=== PATIENT | female | born 1960 | race Caucasian/White ===

== ENCOUNTER 2017-01-30 12:04 | Observation (INO) | payer OTHER ==
[~2017-01-30] VITALS: Ht 172.7 cm; Wt 63.2 kg
[~2017-01-30 12:04] MED LIST: ACET-1256 PO; ASPI81TA28 PO; HYDR-5688 PO; METO-157 PO; SUCR5SUS PO
[2017-01-30] MEDS ORDERED: ASPIRIN 324 MG CHEW PO STA (12:20)
[2017-01-30] MEDS ORDERED: NITROGLYCERIN OINT 2% 1GM PACKET EXT ONE ×2 (12:30)
[2017-01-30 12:34] LABS: BASO % 0.4 %; BASO ABS # 0.05 K/uL (0-0.2); COMPLETE YES; EOS % 0.7 %; HEMATOCRIT 43.6 % (37-47); IG% 0.2 %; LYMPH ABS # 4.64 K/uL (1.2-3.4); MEAN CORPUSCULAR HEMOGLOBIN 30.7 pg (25-34); MEAN CORPUSCULAR HGB CONC 33.7 g/dl (32-36); MEAN PLATELET VOLUME 9.4 fL (7.4-10.4); MONO % 6.2 %; NEUT % 57.5 %; PLATELET COUNT 291 K/uL (130-400); RED BLOOD COUNT 4.79 M/uL (4.2-5.4); WHITE BLOOD COUNT 13.24 K/uL (4.8-10.8)
[2017-01-30 12:43] LABS: BLOOD UREA NITROGEN 10 mg/dl (7-18); BUN/CREATININE RATIO 11.7 (10-20); CALCIUM 9.2 mg/dl (8.5-10.1); CARBON DIOXIDE 25 mmol/L (21-32); CHLORIDE 104 mmol/L (98-107); CREATININE 0.86 mg/dl (0.60-1.20); GLUCOSE 97 mg/dl (70-99); POTASSIUM 3.7 mmol/L (3.5-5.1); SODIUM 139 mmol/L (136-145)
[2017-01-30 12:50] LABS: INR 0.9 (0.9-1.1)
--- NOTE | 2017-01-30 13:10 | DIAGNOSTIC IMAGING REPORT ---
CHEST ONE VIEW PORTABLE CLINICAL HISTORY: Atypical chest pain COMPARISON STUDY: 01/22/2016 FINDINGS: There is biapical scarring with mild superior hilar retraction. There is moderate elevation right hemidiaphragm. There is no focal pulmonary consolidation. There are no pleural effusions. There is no failure.[ Underlying emphysema is suspected. IMPRESSION: No active disease in the chest. Electronically signed by: Malcolm Guerrier M.D. 01/30/2017 1:08 PM Dictated Date/Time: 01/30/2017 1:07 PM
[2017-01-30] MEDS ORDERED: ONDANSETRON INJ 2 MG/ML 2 ML VIAL IV PRN (14:30)
[2017-01-30] MEDS ORDERED: ACETAMINOPHEN 325 MG TAB PO PRN (14:30)
[2017-01-30] MEDS ORDERED: NITROGLYCERIN 0.4 MG SL PER TAB CHARGE SL PRN (14:30)
[2017-01-30] MEDS ORDERED: IV FLUIDS COMPLETED PRN (15:45)
[2017-01-30 16:20] VITALS: BP 116/64; PULSE 58; TEMP 36.6; O2SAT 100; Ht 172.7 cm; Wt 63.2 kg
--- NOTE | 2017-01-30 17:10 | History and Physical ---
History & Physical Date & Time of Service: Jan 30, 2017 at 14:46 Chief Complaint: Chest Pain Primary Care Physician: Kem Rodriguez M.D. History of Present Illness Source: patient, family, clinic records, hospital records 57 year old female with PMH of paroxysmal atrial tachycardia, esophagitis, Dyslipidemia presents to the Emergency Room with complaints substernal chest pain that started while she was at work. 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 Pain was sharp and radiated through her left shoulder and jaw, grade 10/10 and associated with SOB. she said that the pain improved with the nitro patch. Denies any diaphoresis and dizziness. She said that she had an history of SVT and family hx of cardiac disease. her dad had an heart attack at age 39. Last stress test was wo years ago and was normal. Denies lightheadedness, fevers, cough, leg swelling or pain, vomiting, diarrhea, or other complaints. Past Medical/Surgical History Medical Problems: (1) Appendectomy Status: Resolved (2) Bilateral breast implants Status: Resolved (3) Biopsy of breast Status: Resolved (4) Cholecystectomy Status: Resolved (5) Dyslipidemia Status: Chronic (6) Endometriosis Status: Chronic (7) Exploratory laparotomy Status: Resolved (8) Hernia repair Status: Resolved (9) History of - hysterectomy Status: Resolved (10) Oophorectomy Status: Resolved (11) Small bowel obstruction Status: Chronic (12) SVT Status: Chronic Family History FHx: COPD (chronic obstructive pulmonary disease) FHx: heart disease Social History Smoking Status: Current Every Day Smoker Drug Use: none Marital Status: Occupational Status: employed Immunizations History of Influenza Vaccine: N/A History of Tetanus Vaccine?: Yes Tetanus Immunization Date: Jun 19, 2005 History of Pneumococcal: Yes History of Hepatitis B Vaccine: Yes Hepatitis Immunization Date: Oct 19, 1994 Multi-Drug Resistant Organisms History of MDRO: No Allergies Coded Allergies: Fentanyl (Verified Allergy, Severe, RESP. DISTRESS, 01/30/17) Ibuprofen (Verified Allergy, Severe, ESOPHOGIAL SPASMS, 01/30/17) Penicillins (Verified Allergy, Severe, SOB, HIVES, ANAPHYLAXIS-CAN TAKE CEPHALOSPORINS [place], 01/30/17) Pseudoephedrine (Verified Allergy, Mild, 01/30/17) Ezetimibe (Verified Allergy, Unknown, muscle pain, 01/30/17) Simvastatin (Verified Adverse Reaction, Intermediate, MUSCLE SPASMS,CRAMPS , 01/30/17) Statins (Verified Adverse Reaction, Intermediate, muscle cramps and spasms , 01/30/17) Prochlorperazine (Verified Adverse Reaction, Unknown, PSYCHOTIC RXN, ) Home Medications Scheduled PRN Acetaminophen (Tylenol), 1,000 MG PO DIRECTED PRN for Pain Aspirin (Aspirin Ec), 81 MG PO DAILY PRN for Pain Metoclopramide (Reglan), 5 MG PO UD PRN for GI Upset Sucralfate (Carafate), 1 GM PO DIRECTED PRN for STOMACH ISSUES Physical Exam Vital Signs Date Time Temp Pulse Resp B/P Pulse Ox O2 Delivery O2 Flow Rate FiO2 01/30/17 14:30 129/85 01/30/17 14:14 57 18 109/73 97 01/30/17 13:30 61 18 108/73 97 01/30/17 13:10 65 01/30/17 12:45 125/73 01/30/17 12:27 77 18 121/76 99 Room Air 01/30/17 12:23 98 Room Air 01/30/17 12:07 36.7 86 18 144/88 100 Room Air General Appearance: WD/WN, no apparent distress Head: normocephalic, atraumatic Eyes: normal inspection, PERRL, EOMI ENT: normal ENT inspection, hearing grossly normal, TMs normal Neck: supple, no JVD Respiratory/Chest: chest non-tender, lungs clear, normal breath sounds, no respiratory distress, no accessory muscle use Cardiovascular: regular rate, rhythm, no edema, no gallop, no JVD, no murmur Abdomen/GI: normal bowel sounds, non tender, soft Back: normal inspection, no CVA tenderness, no muscle spasm Extremities/Musculoskelatal: normal inspection, no calf tenderness Neurologic/Psych: [employer] senior [employer] II-XII nml as tested, no motor/sensory deficits, alert, oriented x 3 Skin: normal color, warm/dry Lymphatic: no adenopathy Diagnostics Laboratory Results Results Past 24 Hours Test 01/30/17 12:10 Range/Units White Blood Count 13.24 4.8-10.8 K/uL Red Blood Count 4.79 4.2-5.4 M/uL Hemoglobin 14.7 12.0-16.0 g/dL Hematocrit 43.6 37-47 % Mean Corpuscular Volume 91.0 80-100 fL Mean Corpuscular Hemoglobin 30.7 25-34 pg Mean Corpuscular Hemoglobin Concent 33.7 32-36 g/dl Platelet Count 291 130-400 K/uL Mean Platelet Volume 9.4 7.4-10.4 fL Neutrophils (%) (Auto) 57.5 % Lymphocytes (%) (Auto) 35.0 % Monocytes (%) (Auto) 6.2 % Eosinophils (%) (Auto) 0.7 % Basophils (%) (Auto) 0.4 % Neutrophils # (Auto) 7.62 1.4-6.5 K/uL Lymphocytes # (Auto) 4.64 1.2-3.4 K/uL Monocytes # (Auto) 0.82 0.11-0.59 K/uL Eosinophils # (Auto) 0.09 0-0.5 K/uL Basophils # (Auto) 0.05 0-0.2 K/uL RDW Standard Deviation 46.8 36.4-46.3 fL RDW Coefficient of Variation 14.0 11.5-14.5 % Immature Granulocyte % (Auto) 0.2 % Immature Granulocyte # (Auto) 0.02 0.00-0.02 K/uL Prothrombin Time 10.0 9.0-12.0 SECONDS Prothromb Time International Ratio 0.9 0.9-1.1 Activated Partial Thromboplast Time 25.9 21.0-31.0 SECONDS Partial Thromboplastin Ratio 1.0 Sodium Level 139 136-145 mmol/L Potassium Level 3.7 3.5-5.1 mmol/L Chloride Level 104 98-107 mmol/L Carbon Dioxide Level 25 21-32 mmol/L Anion Gap 10.0 3-11 mmol/L Blood Urea Nitrogen 10 7-18 mg/dl Creatinine 0.86 0.60-1.20 mg/dl Est Creatinine Clear Calc Drug Dose 73.6 ml/min Estimated GFR () 88.1 Estimated GFR (Non- 76.1 BUN/Creatinine Ratio 11.7 10-20 Random Glucose 97 70-99 mg/dl Calcium Level 9.2 8.5-10.1 mg/dl Troponin I < 0.015 0-0.045 ng/ml Diagnostic Radiology CHEST ONE VIEW PORTABLE CLINICAL HISTORY: Atypical chest pain COMPARISON STUDY: 01/22/2016 FINDINGS: There is biapical scarring with mild superior hilar retraction. There is moderate elevation right hemidiaphragm. There is no focal pulmonary consolidation. There are no pleural effusions. There is no failure.[ Underlying emphysema is suspected. IMPRESSION: No active disease in the chest. Electronically signed by: Malcolm Guerrier M.D. 01/30/2017 1:08 PM Dictated Date/Time: 01/30/2017 1:07 PM Impression Assessment and Plan Chest Pain Pt has significant risk factors such as smoking, dyslipidemia and family hx heart disease Need to R/O ACS 1set CM negative EKG did not show any significant ST changes will follow on 2 more set of CM repeat EKG in am her last stress test was 2 yrs ago an was negative echo done on 11/25/12 was negative will get a resting echo consult cardiology Not on statin (cannot tolerates it) and Beta cullen check lipid panel continue aspirin if chest pain continue, might consider to get a cardiac cath since pt never had one will continue monitor closely in telemetry Tobacco abuse Counseling on smoking cessation no nicotine patch because in the past it triggered her SVT DVT px On subq heparin Code Status Full code Level of Care Telemetry Resuscitation Status FULL RESUSCITATION VTE Prophylaxis VTE Risk Assessment Done? Y/N: Yes Risk Level: Moderate Given or contraindicated: Unfractionated heparin SQ Additional Copies To Kem Rodriguez M.D.
--- NOTE | 2017-01-30 17:29 | EMERGENCY ROOM VISIT NOTE ---
History Report prepared by Adibayah: Malorie Dudley Under the Supervision of: Dr. Yuan Alexandra M.D. First contact with patient: 12:12 Chief Complaint: CHEST PAIN Stated Complaint: CHEST PAIN Nursing Triage Summary: pt to the ED with c/o substernal chest pain that started 10 min ago with SOB and pain goes to her neck and between shoulder blades. hx svt no cough or cold History of Present Illness The patient is a 57 year old female who presents to the Emergency Room with complaints of improved substernal chest pain that began 10 minutes ago. The pain was tight and radiated through her left shoulder and jaw. It began while she was putting gloves on at work. She also developed shortness of breath and queasiness at that time. Her pain was a 10/10 for about 5 minutes and has since improved to a 2/10. She denies sweating. The patient has a history of SVT but denies any other cardiac disease. Her most recent stress test was normal two years ago. She has never had a cardiac catheterization. She follows with Dr. Jin of [facility]. The patient notes that her father had his first heart attack at age 39. He was a smoker. Her maternal grandfather also had a history of heart disease. The patient smokes about 5 cigarettes a day. She has a 30 year history of smoking. She reports that she has been in cardiac arrest twice when she perforated her bowels. Denies any recent GI issues. She did not take aspirin since her pain began. Denies lightheadedness, fevers, cough , leg swelling or pain, vomiting, diarrhea, or other complaints. Source of History: patient Onset: 10 minutes ago Position: chest (substernal) Symptom Intensity: initial: 10/10, current: 2/10 Quality: other (tightness) Timing: other (improved) Associated Symptoms: + SOB, No cough, No diarrhea, No fevers, No vomiting Note: Other symptoms: queasiness Review of Systems See HPI for pertinent positives & negatives. A total of 10 systems reviewed and were otherwise negative. Past Medical & Surgical Medical Problems: (1) Appendectomy (2) Bilateral breast implants (3) Biopsy of breast (4) Chest pain (5) Cholecystectomy (6) Dyslipidemia (7) Endometriosis (8) Exploratory laparotomy (9) Hernia repair (10) History of - hysterectomy (11) lap (12) Oophorectomy (13) Small bowel obstruction (14) SVT Family History FHx: COPD (chronic obstructive pulmonary disease) FHx: heart disease Social History Smoking Status: Current Every Day Smoker Alcohol Use: none Drug Use: none Marital Status: Housing Status: lives with significant other Occupation Status: employed Current/Historical Medications Scheduled PRN Acetaminophen (Tylenol), 1,000 MG PO DIRECTED PRN for Pain Aspirin (Aspirin Ec), 81 MG PO DAILY PRN for Pain Metoclopramide (Reglan), 5 MG PO UD PRN for GI Upset Sucralfate (Carafate), 1 GM PO DIRECTED PRN for STOMACH ISSUES Allergies Coded Allergies: Fentanyl (Verified Allergy, Severe, RESP. DISTRESS, 01/30/17) Ibuprofen (Verified Allergy, Severe, ESOPHOGIAL SPASMS, 01/30/17) Penicillins (Verified Allergy, Severe, SOB, HIVES, ANAPHYLAXIS-CAN TAKE CEPHALOSPORINS OK, 01/30/17) Pseudoephedrine (Verified Allergy, Mild, 01/30/17) Ezetimibe (Verified Allergy, Unknown, muscle pain, 01/30/17) Simvastatin (Verified Adverse Reaction, Intermediate, MUSCLE SPASMS,CRAMPS , 01/30/17) Statins (Verified Adverse Reaction, Intermediate, muscle cramps and spasms , 01/30/17) Prochlorperazine (Verified Adverse Reaction, Unknown, PSYCHOTIC RXN, ) Physical Exam Vital Signs Date Time Temp Pulse Resp B/P Pulse Ox O2 Delivery O2 Flow Rate FiO2 01/30/17 14:30 129/85 01/30/17 14:14 57 18 109/73 97 01/30/17 13:30 61 18 108/73 97 01/30/17 13:10 65 01/30/17 12:45 125/73 01/30/17 12:27 77 18 121/76 99 Room Air 01/30/17 12:23 98 Room Air 01/30/17 12:07 36.7 86 18 144/88 100 Room Air Physical Exam Constitutional: Vital signs reviewed. Eyes: Pupils are equal round reactive to light. Conjunctiva are noninjected. ENT: Pharynx is clear without erythema or exudate. Mucous membranes are moist. Neck supple without meningeal signs. Respiratory: Clear to auscultation bilaterally. Breath sounds are equal bilaterally. Cardiovascular: Regular rate and rhythm. No rubs or gallops. GI: Soft, nondistended and nontender. Bowel sounds are present. Musculoskeletal: No peripheral edema. No lower extremity tenderness. Integumentary: No cyanosis. Neurological: The patient is awake and alert. No focal deficits. Psychiatric: Normal affect. Medical Decision & Procedures ER Provider Diagnostic Interpretation: Radiology results as stated below per my review and the radiologist's interpretation: CHEST ONE VIEW PORTABLE CLINICAL HISTORY: Atypical chest pain COMPARISON STUDY: 01/22/2016 FINDINGS: There is biapical scarring with mild superior hilar retraction. There is moderate elevation right hemidiaphragm. There is no focal pulmonary consolidation. There are no pleural effusions. There is no failure.[ Underlying emphysema is suspected. IMPRESSION: No active disease in the chest. Electronically signed by: Malcolm Guerrier M.D. 01/30/2017 1:08 PM Dictated Date/Time: 01/30/2017 1:07 PM Laboratory Results 01/30/17 12:10 Red Blood Count 4.79, Mean Corpuscular Volume 91.0, Mean Corpuscular Hemoglobin 30.7, Mean Corpuscular Hemoglobin Concent 33.7, Mean Platelet Volume 9.4, Neutrophils (%) (Auto) 57.5, Lymphocytes (%) (Auto) 35.0, Monocytes (%) (Auto) 6.2, Eosinophils (%) (Auto) 0.7, Basophils (%) (Auto) 0.4, Neutrophils # (Auto) 7.62, Lymphocytes # (Auto) 4.64, Monocytes # (Auto) 0.82, Eosinophils # (Auto) 0.09, Basophils # (Auto) 0.05 01/30/17 12:10 Test 01/30/17 12:10 White Blood Count 13.24 K/uL (4.8-10.8) Red Blood Count 4.79 M/uL (4.2-5.4) Hemoglobin 14.7 g/dL (12.0-16.0) Hematocrit 43.6 % (37-47) Mean Corpuscular Volume 91.0 fL (80-100) Mean Corpuscular Hemoglobin 30.7 pg (25-34) Mean Corpuscular Hemoglobin Concent 33.7 g/dl (32-36) Platelet Count 291 K/uL (130-400) Mean Platelet Volume 9.4 fL (7.4-10.4) Neutrophils (%) (Auto) 57.5 % Lymphocytes (%) (Auto) 35.0 % Monocytes (%) (Auto) 6.2 % Eosinophils (%) (Auto) 0.7 % Basophils (%) (Auto) 0.4 % Neutrophils # (Auto) 7.62 K/uL (1.4-6.5) Lymphocytes # (Auto) 4.64 K/uL (1.2-3.4) Monocytes # (Auto) 0.82 K/uL (0.11-0.59) Eosinophils # (Auto) 0.09 K/uL (0-0.5) Basophils # (Auto) 0.05 K/uL (0-0.2) RDW Standard Deviation 46.8 fL (36.4-46.3) RDW Coefficient of Variation 14.0 % (11.5-14.5) Immature Granulocyte % (Auto) 0.2 % Immature Granulocyte # (Auto) 0.02 K/uL (0.00-0.02) Prothrombin Time 10.0 SECONDS (9.0-12.0) Prothromb Time International Ratio 0.9 (0.9-1.1) Activated Partial Thromboplast Time 25.9 SECONDS (21.0-31.0) Partial Thromboplastin Ratio 1.0 Anion Gap 10.0 mmol/L (3-11) Est Creatinine Clear Calc Drug Dose 73.6 ml/min Estimated GFR () 88.1 Estimated GFR (Non- 76.1 BUN/Creatinine Ratio 11.7 (10-20) Calcium Level 9.2 mg/dl (8.5-10.1) Troponin I < 0.015 ng/ml (0-0.045) Laboratory results as reviewed by me. Medications Administered Medications (Trade) Dose Ordered Sig/Oneyda Route Start Time Stop Time Status Last Admin Dose Admin Aspirin (Aspirin Chew) 324 mg NOW STAT PO 01/30/17 12:20 01/30/17 12:22 DC 01/30/17 12:28 324 MG Nitroglycerin (Nitroglycerin 2% Oint) 0.5 inch NOW ONCE EXT 01/30/17 12:30 01/30/17 12:31 DC 01/30/17 12:30 0.5 INCH ECG Indication: chest pain Rate (beats per minute): 86 Rhythm: normal sinus Findings: no ectopy, other (slight downsloping ST segment V3-V5) Comparison ECG Date: 01/22/16 Change: no significant change ED Course 1216: The patient was evaluated in room C4. A complete history and physical exam was performed. 1220: Ordered Aspirin 324 mg PO. 1230: Ordered Nitroglycerin 0.5 inch EXT, Nitroglycerin 1 inch EXT. 1314: I reassessed the patient and updated her on results so far. Her chest pain has resolved. 1316: I discussed the case with [facility]. The patient will be evaluated for further management. Medical Decision This is a 57 year-old female presents with chest pain. Differential diagnosis includes unstable angina, OR, pleurisy, GERD, anxiety. I did perform a limited focused review of portions of the patient's old chart on the electronic medical record. The patient has had no recent pertinent visits to this hospital. I did evaluate the patient as noted above. The patient is presenting with what she describes as initially crushing chest pain which is now a tightness radiating into her jaw and shoulder blade. She does have several cardiac risk factors including a strong family history and tobacco use. IV access was established. The patient was placed on a continuous air sampling and monitoring. I did treat her with nitroglycerin paste. I did order and personally review the patient's 12-lead EKG and chest x-ray as described above. I did order and review the patient's blood work as noted in the electronic medical record. Initial troponin is negative. I did reassess the patient. Her chest pain is completely resolved at this time. I did discuss the test results with her and recommended hospitalization for further care as well as repeat cardiac enzymes. I did discuss the case with the hospitalist and showcase trimmer. Consults Time Called: 1314 Consulting Physician: [facility] Returned Call: [phone] I discussed the case with her. The patient will be evaluated for further management. Impression Primary Impression: Precordial chest pain Scribe Attestation The scribe's documentation has been prepared under my direct and personally reviewed by me in its entirety. I confirm that the note above accurately reflects all work, treatment, procedures, and medical decision making performed by me. Departure Information Dispostion Being Evaluated By Hospitalist Referrals Kem Rodriguez M.D. (PCP) Patient Instructions My [facility]
--- NOTE | 2017-01-30 18:19 | CARDIOLOGY CONSULTATION ---
DATE OF CONSULTATION: 01/30/2017 REFERRING PHYSICIAN: [facility]. REASON FOR CONSULTATION: Chest pain. 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 Today, she was at work and in her usual state of health. She had a sudden onset of epigastric retrosternal chest discomfort radiating to her back and up into her jaw. It lasted for several minutes and then started to improve. She was taken to the Emergency Department, where nitro paste was placed on her chest and her symptoms completely resolved. She is completely pain free. She has a history of paroxysmal atrial arrhythmias, but was last seen by our group almost 10 years ago. She has not had any recent episodes of heart palpitations or tachycardia. She has a history of cigarette smoking and currently remains smoker. She also has a history of dyslipidemia and esophagitis. ALLERGIES: FENTANYL, IBUPROFEN, PENICILLIN, PSEUDOEPHEDRINE, ____ AND PROCHLORPERAZINE. PAST MEDICAL HISTORY: As outlined above, she has a history of paroxysmal atrial arrhythmias. She has been treated for esophagitis and has a history of dyslipidemia. She has no prior history of diabetes, strokes or kidney disease. FAMILY MEDICAL HISTORY: Noncontributory. SOCIAL HISTORY: The patient continues to smoke. She is and employs as a nurse. REVIEW OF SYSTEMS: A 10-point review of systems is negative except for the history of chief complaint. PHYSICAL EXAMINATION: GENERAL: She is alert and oriented in no acute distress. VITAL SIGNS: Blood pressure is 120/80 and pulse is regular at 60. She is afebrile. HEENT: She is normocephalic. Pupils are equal and reactive to light. Extraocular muscles are intact bilaterally. NECK: The neck veins are flat. Carotids have good upstrokes bilaterally without bruits. Thyroid is nonpalpable. RESPIRATORY: Breath sounds equal bilaterally and clear to auscultation. CARDIOVASCULAR: Heart has a regular rhythm. Normal S1 and S2. No S3 or S4. No cardiac rubs or murmurs. GASTROINTESTINAL: Abdomen is soft and nontender without organomegaly. EXTREMITIES: Free of edema, digit clubbing, or cyanosis. NEUROLOGIC: Grossly intact. SKIN: Warm to touch. LYMPH NODES: Negative to palpation. LABORATORY DATA: EKG reveals sinus rhythm without acute changes. Cardiac markers are negative so far. IMPRESSION: 1. Atypical chest pain. 2. History of paroxysmal atrial arrhythmias. 3. History of cigarette smoking. RECOMMENDATIONS: If the patient's cardiac markers are negative, then I believe we should proceed with an exercise stress echocardiogram. We will follow along with you during her hospital stay.
[2017-01-30 19:30] VITALS: BP 119/62; PULSE 76; TEMP 36.8; O2SAT 98
[2017-01-30] MEDS: HEPARIN SOD 5000 UNIT/0.5 ML CARP SQ SCH (22:17)
[2017-01-31] VITALS (8 sets, daily range): BP systolic 96–121; BP diastolic 58–76; PULSE 56–76; TEMP 36.6–37.2; O2SAT 20–99
[2017-01-31] MEDS: HEPARIN SOD 5000 UNIT/0.5 ML CARP SQ SCH ×2 (06:07→14:00)
[2017-01-31 06:22] LABS: HEMATOCRIT 40.3 % (37-47); MEAN CELL VOLUME 93.1 fL (80-100); MEAN CORPUSCULAR HEMOGLOBIN 30.9 pg (25-34); MEAN CORPUSCULAR HGB CONC 33.3 g/dl (32-36); MEAN PLATELET VOLUME 9.6 fL (7.4-10.4); PLATELET COUNT 251 K/uL (130-400); RED BLOOD COUNT 4.33 M/uL (4.2-5.4); WHITE BLOOD COUNT 9.14 K/uL (4.8-10.8)
[2017-01-31 06:56] LABS: BUN/CREATININE RATIO 20.8 (10-20); CALCIUM 8.2 mg/dl (8.5-10.1); CHOLESTEROL/HDL RATIO 3.5; CREATININE 0.78 mg/dl (0.60-1.20); POTASSIUM 4.3 mmol/L (3.5-5.1)
[2017-01-31] MEDS ORDERED: ASPIRIN 81 MG ECTAB PO SCH (09:00)
[2017-01-31] MEDS ORDERED: PERFLUTREN LIPID MICROSPHERE (DEFINITY) IV ONE (11:45)
--- NOTE | 2017-01-31 11:47 | Cardiology Progress Note ---
Cardiology Progress Note Date of Service Jan 31, 2017. Cardiology Progress Note Patient with abnormal exercise stress echo. Chest pressure reproduced with exertion. Normal EKG. Subtle septal wall motion abnormality. Advance diet. NPO after MN except medications for cardiac cath 02/01.
--- NOTE | 2017-01-31 12:31 | EXERCISE STRESS ECHO ---
*NOTICE TO RECEIVING LIBERTARIAN AGENCY This information is strictly Confidential and protected under [place] law. [place] law prohibits you from making any further disclosure of this information unless further disclosure is expressly permitted by the written consent of the person to whom it pertains or is authorized by law. A general authorization for the release of medical or other information is not sufficient for this purpose. Hospital accepts no responsibility if the information is made available to any other person, INCLUDING THE PATIENT. Interpretation Summary * Name: RISA JEAN Study Date: 01/31/2017 09:46 AM * Patient Location: .2E\\S\\E212\\S\\1 * : 1960 (M/d/yyyy) Gender: Female Height: 68 in * Age: 57 yrs Ethnicity: CA Weight: 139 lb * Ordering Physician: Kp Miller * Performed By: Angelica Crabtree RDCS * * Reason For Study: Chest pain * BSA: 1.8 m2 * -- Conclusions -- * STRESS STUDY: * The exercise stress was abnormal with complaint of "chest pressure" induced in Stage II of exercise that continued in to stage III. * Mild equivocal ST depression was noted in the inferior leads in stage I , that resolved with progressive exercise. The ECG response was otherwise negative for ischemia. * The heart rate response was attenuated despite a moderately high level of exercise. * The resting wall motion was normal. * The post stress images were technically limited due to ventricular ectopy in the immediate post exercise recovery interval. * The heart rate response was suboptimal despite achieving a moderately high exercise load, and recovered quickly limiting the post exercise images for detecting the ischemic window. * As subtle septal wall motion abnormality was noted on the post exercise images in the parasternal short axis view. * The left ventricular systolic function increased appropriately with exercise. * RESTING STUDY: * There is a small circumferential pericardial effusion. * There are no echocardiographic indications of cardiac tamponade. * There is no significant valvular heart disease. Procedure Details * ECHOEX, CPT #34183 * ECHO DOPPLER, CPT #[id number] * ECHO COLOR FLOW, CPT #[id number] * A contrast injection of Definity was performed to improve assessment of LV function. * Contrast was injected into an intravenous site in the left arm. * One vial of Definity ultrasound contrast was diluted in normal saline to a total volume of 10 ml. A total of '4' ml of solution was administered during imaging. * Lot # [id number] of Definity utilized for procedure. * Expiration date FEB 27. * The attending nurse who injected the contrast agent was Nkechi Crawford RN. Left Ventricle * The left ventricle is normal in size. * There is normal left ventricular wall thickness. * Left ventricular systolic function is normal. * Ejection Fraction = 60-65%. * The resting wall motion was normal. The post stress images were technically limited due to ventricular ectopy in the immediate post exercise recovery interval. The heart rate response was suboptimal despite achieving a moderately high exercise load, and recovered quickly limiting the post exercise images for detecting the ischemic window. As subtle septal wall motion abnormality was noted on the post exercise images in the parasternal short axis view. The left ventricular systolic function increased appropriately with exercise. Right Ventricle * The right ventricle is normal in size and function. Atria * The left atrial size is normal. * Right atrial size is normal. * No ASD detected; PFO is not assessed. Mitral Valve * The mitral valve is normal. * There is no mitral valve stenosis. * Significant mitral regurgitation is absent. Tricuspid Valve * The tricuspid valve is normal. * There is no tricuspid stenosis. * Significant tricuspid regurgitation is absent. * Doppler findings do not suggest pulmonary hypertension. Aortic Valve * The aortic valve is trileaflet. * No hemodynamically significant valvular aortic stenosis. * No aortic regurgitation is present. Pulmonic Valve * The pulmonic valve is not well visualized. Great Vessels * The aortic root is normal size. Pericardium * There is a small circumferential pericardial effusion. * There are no echocardiographic indications of cardiac tamponade. Stress Parameters * The baseline ECG reveals sinus bradycardia with normal ST segments. * Mild equivocal ST depression was noted in the inferior leads in stage I , that resolved with progressive exercise. The ECG response was otherwise negative for ischemia. Occasional PVCs were noted in recovery. The heart rate response was attenuated despite a moderately high level of exercise. * The stress portion of this study was personally supervised by the undersigned interpreting physician. * Rest heart rate was '59' BPM. * Rest blood pressure was '99/64' * Maximum heart rate achieved was 133 bpm. * Maximum heart rate was 80 % of maximum age-predicted heart rate. * Maximum blood pressure was '187/66' * Total exercise time was '9:00' * Maximum exercise MET level achieved was '10.10' METS * Maximum treadmill speed was '3.40' miles per hour. * Maximum treadmill elevation was '14.00'% grade. * Exercise was terminated due to 'patient request' Left Ventricular Diastolic Function * Grade I diastolic dysfunction, (abnormal relaxation pattern). MMode 2D Measurements and Calculations IVSd 0.73 cm LVIDd 3.9 cm LVIDs 2.7 cm LVPWd 0.84 cm IVS/LVPW 0.86 FS 30.6 % EDV(Teich) 66.6 ml ESV(Teich) 27.5 ml EF(Teich) 58.7 % EDV(cubed) 60.1 ml ESV(cubed) 20.1 ml EF(cubed) 66.6 % LV mass(C)d 87.7 grams LV mass(C)dI 50.1 grams/m\\S\\2 SV(Teich) 39.1 ml SI(Teich) 22.3 ml/m\\S\\2 SV(cubed) 40.0 ml SI(cubed) 22.9 ml/m\\S\\2 ACS 1.9 cm LA dimension 2.5 cm asc Aorta Diam 2.7 cm LVAd ap4 25.6 cm\\S\\2 LVLd ap4 7.3 cm EDV(MOD-sp4) 73.6 ml EDV(sp4-el) 76.5 ml LVAs ap4 13.6 cm\\S\\2 LVLs ap4 5.7 cm ESV(MOD-sp4) 27.0 ml ESV(sp4-el) 27.4 ml EF(MOD-sp4) 63.3 % EF(sp4-el) 64.2 % LVAd ap2 21.2 cm\\S\\2 LVLd ap2 7.1 cm EDV(MOD-sp2) 53.6 ml EDV(sp2-el) 54.2 ml LVAs ap2 10.1 cm\\S\\2 LVLs ap2 4.6 cm ESV(MOD-sp2) 19.2 ml ESV(sp2-el) 18.6 ml EF(MOD-sp2) 64.2 % EF(sp2-el) 65.7 % LVLd %diff -3.10 % EDV(MOD-bp) 63.6 ml LVLs %diff -22.61 % ESV(MOD-bp) 24.7 ml EF(MOD-bp) 61.1 % SV(MOD-sp4) 46.5 ml SI(MOD-sp4) 26.6 ml/m\\S\\2 SV(MOD-sp2) 34.4 ml SI(MOD-sp2) 19.7 ml/m\\S\\2 SV(MOD-bp) 38.9 ml SI(MOD-bp) 22.2 ml/m\\S\\2 SV(sp4-el) 49.1 ml SI(sp4-el) 28.0 ml/m\\S\\2 SV(sp2-el) 35.7 ml SI(sp2-el) 20.4 ml/m\\S\\2 Doppler Measurements and Calculations MV E max fabio 80.9 cm/sec MV A max fabio 47.4 cm/sec MV E/A 1.7 MV dec time 0.25 sec Ao V2 max 129.6 cm/sec Ao max PG 6.7 mmHg Ao max PG (full) 2.6 mmHg LV V1 max PG 4.1 mmHg LV V1 max 101.2 cm/sec PA V2 max 76.4 cm/sec PA max PG 2.3 mmHg PA acc slope 381.3 cm/sec\\S\\2 PA acc time 0.18 sec TR max fabio 128.6 cm/sec PA pr(Accel) -0.22 mmHg
[2017-01-31] MEDS ORDERED: NURSING VERBAL MED ORDER ONE (14:30)
--- NOTE | 2017-01-31 18:08 | Progress Note ---
Medicine Progress Note Date & Time of Visit: Jan 31, 2017 at 17:50. Subjective 57 yo F with h/o SVT and prior surgery c/p vfib arrest but no known CAD presents with chest pain denies chest pain no headache or other symptom at this time toelrating PO ambulatory Objective Last 8 Hrs Date Time Temp Pulse Resp B/P Pulse Ox O2 Delivery O2 Flow Rate FiO2 01/31/17 15:53 37.2 76 18 118/62 20 01/31/17 12:17 37.2 72 20 121/76 96 Room Air 01/31/17 12:00 Room Air Physical Exam: GEN: WNWD, in no acute distress, alert and appropriate HEENT: NC/AT, PERRL, normal sclerae CARDIO: reg rate, S1/2 heard without m/g/r LUNGS: CTA bilaterally, no crackles, rales or wheezes, good diaphragmatic excursion ABD: soft, non-tender, non-distended, no rebound or guarding EXTREMITY: no LE swelling or edema, extremities are warm and well-perfused NEURO: CN 2-12 grossly intact, sensation intact throughout MUSC: moves all extremities equally, no gross focal deficits SKIN: warm and dry Laboratory Results: 01/31/17 06:14 01/31/17 06:14 Test 01/30/17 12:10 01/30/17 23:59 01/31/17 00:05 01/31/17 06:14 Immature Granulocyte % (Auto) 0.2 % White Blood Count 13.24 K/uL (4.8-10.8) Red Blood Count 4.79 M/uL (4.2-5.4) 4.33 M/uL (4.2-5.4) Hemoglobin 14.7 g/dL (12.0-16.0) Hematocrit 43.6 % (37-47) Mean Corpuscular Volume 91.0 fL (80-100) 93.1 fL (80-100) Mean Corpuscular Hemoglobin 30.7 pg (25-34) 30.9 pg (25-34) Mean Corpuscular Hemoglobin Concent 33.7 g/dl (32-36) 33.3 g/dl (32-36) Platelet Count 291 K/uL (130-400) Mean Platelet Volume 9.4 fL (7.4-10.4) 9.6 fL (7.4-10.4) Neutrophils (%) (Auto) 57.5 % Lymphocytes (%) (Auto) 35.0 % Monocytes (%) (Auto) 6.2 % Eosinophils (%) (Auto) 0.7 % Basophils (%) (Auto) 0.4 % Neutrophils # (Auto) 7.62 K/uL (1.4-6.5) Lymphocytes # (Auto) 4.64 K/uL (1.2-3.4) Monocytes # (Auto) 0.82 K/uL (0.11-0.59) Eosinophils # (Auto) 0.09 K/uL (0-0.5) Basophils # (Auto) 0.05 K/uL (0-0.2) Immature Granulocyte # (Auto) 0.02 K/uL (0.00-0.02) Prothrombin Time 10.0 SECONDS (9.0-12.0) Prothromb Time International Ratio 0.9 (0.9-1.1) Activated Partial Thromboplast Time 25.9 SECONDS (21.0-31.0) Partial Thromboplastin Ratio 1.0 Creatine Kinase MB Ratio (0-3.0) Creatine Kinase MB < 0.5 ng/ml (0.5-3.6) Troponin I < 0.015 ng/ml (0-0.045) RDW Standard Deviation 47.8 fL (36.4-46.3) RDW Coefficient of Variation 14.0 % (11.5-14.5) Anion Gap 7.0 mmol/L (3-11) Est Creatinine Clear Calc Drug Dose 81.3 ml/min Estimated GFR () 99.2 Estimated GFR (Non- 85.6 BUN/Creatinine Ratio 20.8 (10-20) Calcium Level 8.2 mg/dl (8.5-10.1) Triglycerides Level 66 mg/dl (0-150) Cholesterol Level 252 mg/dl (0-200) HDL Cholesterol 73 mg/dl LDL Cholesterol, Calculated 166 mg/dl VLDL Cholesterol, Calculated 13 mg/dl Cholesterol/HDL Ratio 3.5 Last 24 Hours Test 01/30/17 18:00 01/30/17 18:20 01/30/17 23:59 01/31/17 00:05 Creatine Kinase MB Ratio Creatine Kinase MB < 0.5 ng/ml < 0.5 ng/ml Troponin I < 0.015 ng/ml < 0.015 ng/ml Test 01/31/17 06:14 White Blood Count 9.14 K/uL Red Blood Count 4.33 M/uL Hemoglobin 13.4 g/dL Hematocrit 40.3 % Mean Corpuscular Volume 93.1 fL Mean Corpuscular Hemoglobin 30.9 pg Mean Corpuscular Hemoglobin Concent 33.3 g/dl RDW Standard Deviation 47.8 fL RDW Coefficient of Variation 14.0 % Platelet Count 251 K/uL Mean Platelet Volume 9.6 fL Sodium Level 141 mmol/L Potassium Level 4.3 mmol/L Chloride Level 108 mmol/L Carbon Dioxide Level 26 mmol/L Anion Gap 7.0 mmol/L Blood Urea Nitrogen 16 mg/dl Creatinine 0.78 mg/dl Est Creatinine Clear Calc Drug Dose 81.3 ml/min Estimated GFR () 99.2 Estimated GFR (Non- 85.6 BUN/Creatinine Ratio 20.8 Random Glucose 89 mg/dl Calcium Level 8.2 mg/dl Triglycerides Level 66 mg/dl Cholesterol Level 252 mg/dl HDL Cholesterol 73 mg/dl LDL Cholesterol, Calculated 166 mg/dl VLDL Cholesterol, Calculated 13 mg/dl Cholesterol/HDL Ratio 3.5 Assessment & Plan 57 yo F with h/o SVT and prior surgery c/p vfib arrest but no known CAD presents with chest pain 1. Chest pain-ACS ruled out overnight and stress test this morning was abnormal. Symptoms yesterday have resolved with nitro and she is feeling well and has no shortness of breath, palpitations or other symptoms at this time. She is awaiting cath in the morning. Medical management includes ASA as patient has an allergy to statins. Lipid panel is OK.. Encourage smoking cessation. Nitro PRN, NPO p MN 2. h/o SVT-patient knows when she goes into it and can usually break episodes with vagal maneuvers; denies during this admission or yesterday. Continues to be monitored on telemetry. DVT px changed to Lovenox 40 to start tomorrow Full Code Dispo-plan for home pending result of cath tomorrow. Dasia Mahmood DO [facility] Hospitalist Continued [facility] stay due to: other (awaiting cardiac cath) Discharge planning: uncertain Current Inpatient Medications: Current Inpatient Medications Medications (Trade) Dose Ordered Sig/Oneyda Route Start Time Stop Time Status Last Admin Dose Admin Acetaminophen (Tylenol Tab) 650 mg Q4H PRN PO 01/30/17 14:30 03/01/17 14:29 01/31/17 13:06 650 MG Ondansetron HCl (Zofran Inj) 4 mg Q6H PRN IV 01/30/17 14:30 03/01/17 14:29 Nitroglycerin (Nitrostat Tab) 0.4 mg UD PRN SL 01/30/17 14:30 03/01/17 14:29 Aspirin (Ecotrin Tab) 81 mg QAM PO 01/31/17 09:00 03/02/17 08:59 Future hold 01/31/17 08:00 81 MG Miscellaneous 1 ea 1 ea PRN PRN N/A 01/30/17 15:45 01/30/18 15:44 Sodium Chloride (Nss 1000ml) 1,000 ml @ 65 mls/hr [id number] IV 02/01/17 00:00 02/01/17 15:23 Aspirin (Aspirin Chew) 324 mg TODAY@0700 PO 02/01/17 07:00 02/01/17 23:59 Enoxaparin Sodium (Lovenox Inj) 40 mg DAILY SQ 02/01/17 09:00 03/03/17 08:59
[2017-02-01] VITALS (12 sets, daily range): BP systolic 104–132; BP diastolic 60–82; PULSE 56–62; TEMP 36.7–36.8; O2SAT 97–98
[2017-02-01 07:00] LABS: HEMATOCRIT 38.5 % (37-47); MEAN CELL VOLUME 91.7 fL (80-100); MEAN CORPUSCULAR HEMOGLOBIN 30.5 pg (25-34); MEAN CORPUSCULAR HGB CONC 33.2 g/dl (32-36); MEAN PLATELET VOLUME 9.6 fL (7.4-10.4); PLATELET COUNT 254 K/uL (130-400); WHITE BLOOD COUNT 8.43 K/uL (4.8-10.8)
[2017-02-01] MEDS ORDERED: ASPIRIN 81 MG CHEW PO SCH (07:00)
[2017-02-01 07:32] LABS: BUN/CREATININE RATIO 14.1 (10-20); CALCIUM 8.2 mg/dl (8.5-10.1); CREATININE 0.66 mg/dl (0.60-1.20)
[2017-02-01] MEDS ORDERED: DC ALL ANTICOAGULANTS ONE (09:00)
[2017-02-01] MEDS ORDERED: ENOXAPARIN 40 MG/0.4 ML SYR SQ SCH (09:00)
[2017-02-01] MEDS ORDERED: MIDAZOLAM HCL 1 MG/ML 2ML VIAL ONE (09:25)
[2017-02-01] MEDS ORDERED: HEPARIN SOD (PORCINE) 1000 UNIT/ML 10 ML VIAL ONE (09:25)
[2017-02-01] MEDS ORDERED: NiCARDipine HCL INJ 2.5 MG/ML 10 ML AMP ONE (09:25)
[2017-02-01] MEDS ORDERED: NITROGLYCERIN/D5W 100MCG/ML 20ML SYR ONE (09:26)
[2017-02-01] MEDS ORDERED: SODIUM CHLORIDE 0.9% 1000ML 1,000 ML IV SCH ×2 (10:25)
[2017-02-01] MEDS ORDERED: SODIUM CHLORIDE 0.9% 1000ML 250 ML IV PRN (10:25)
[2017-02-01] MEDS ORDERED: ATROPINE SULFATE 0.1 MG/ML 5ML SYR IV PRN (10:30)
[2017-02-01] MEDS ORDERED: ONDANSETRON INJ 2 MG/ML 2 ML VIAL IV PRN (10:30)
[2017-02-01] MEDS ORDERED: ACETAMINOPHEN 325 MG TAB PO PRN (10:30)
--- NOTE | 2017-02-01 10:34 | Cardiac Catheterization ---
Procedure Note Procedure Date Feb 01, 2017. Pre-Procedure Diagnosis Angina, Positive Stress Test AUC Score 9 Post-Procedure Diagnosis Normal Coronary Arteries, Normal LV Systolic Function, Normal Intracardiac Pressures Procedure(s) Performed Coronary Angiography, Left Heart Cath, LV Angiography Poultry Breeder Dr. Miller Fittings Tightener(s) None Estimated Blood Loss None Medication(s) Versed, Lidocaine 1% Summary of Findings Normal Coronaries and Normal LV Function Hemodynamics Rest Ao: 118/62 Final Ao: 118/62 LV: 119/10 Recommendations Medical therapy and/or Counseling Specimens None Radiation Exposure (mGy) 423 Contrast (mls) 105 Fluids (cc crystalloids) 60 Procedural Complication(s) None Disposition [employer]/Recovery ACC Data Cardiac Status Clinical evaluation leading to the procedure CAD Presntation: Unstable angina, Positive Stress Test Anginal Classification: CCS I Heart Failure: No Cardiogenic Shock w/in 24Hrs: No Cardiac Arrest w/in 24Hrs: No Imaging studies past 6 months: Yes Stress studies past 6 months: Yes Stress Echocardiogram: Yes - Positive Coronary Anatomy Dominant: Right Left Main (% Stenosis): Normal LAD (% Stenosis): Normal Circumflex (% Stenosis): Normal RCA (% Stenosis): Normal Left Ventricular Angiography EF (%): 60 Mitral Regurgitation: None Diagnostic Status: Elective Closure Device Percutaneous Entry Location: Femoral Closure Device: Mynx Recommendations: Medical therapy and/or Counseling
--- NOTE | 2017-02-01 10:35 | Procedure Note ---
Pre-Mod Sedation Assessment General Date of Moderate Sedation: Feb 01, 2017. Vital Signs: Vital Signs Past 12 Hours Date Time Temp Pulse Resp B/P Pulse Ox O2 Delivery O2 Flow Rate FiO2 02/01/17 10:12 59 19 110/65 100 Nasal Cannula 3 02/01/17 08:00 Room Air 02/01/17 07:48 36.8 56 18 108/60 97 Room Air 02/01/17 04:00 97 Room Air 02/01/17 03:26 36.7 62 17 112/61 97 Room Air 01/31/17 23:59 36.8 56 18 108/60 97 Room Air 01/31/17 23:59 97 Room Air 01/31/17 23:06 36.9 66 18 98/62 97 Room Air Review Cardiovascular: regular rate, rhythm Abdomen: non tender Lungs: lungs clear Airway Class: I Pre-Sedation Airway Assessment Oral Cavity: WNL Able to Visualize Vocal Cords: No Short Thick Neck: No Hx of Sleep Apnea: No Smoking Status: Current Every Day Smoker Mallampati Classification: Class I ASA Classification: Class I Procedure Planning Contraindications-for Mod Sed: None Yes Notes The planned sedation has been discussed with the patient and consent obtained. I have identified the patient, determined the appropriateness of sedation and have assessed the patient immediately prior to the procedure. All medicine(s) and interventions are by my order.
--- NOTE | 2017-02-01 10:37 | Procedure Note ---
Post-Mod Sedation Assessment General Date of Moderate Sedation Feb 01, 2017. Vital Signs: Vital Signs Past 12 Hours Date Time Temp Pulse Resp B/P Pulse Ox O2 Delivery O2 Flow Rate FiO2 02/01/17 10:12 59 19 110/65 100 Nasal Cannula 3 02/01/17 08:00 Room Air 02/01/17 07:48 36.8 56 18 108/60 97 Room Air 02/01/17 04:00 97 Room Air 02/01/17 03:26 36.7 62 17 112/61 97 Room Air 01/31/17 23:59 36.8 56 18 108/60 97 Room Air 01/31/17 23:59 97 Room Air 01/31/17 23:06 36.9 66 18 98/62 97 Room Air Review - Discharge Criteria Vital Signs Stable: Yes Alert/Oriented/Conversant: Yes Returned to Baseline Mental St: Yes Nausea Absent/Minimal: Yes Pain/Discomfort/Absent/Minimal: Yes Normal/Baseline Respirations: Yes Active Bleeding?: No Pt Received D/C Instructions: Yes Prescriptions Given: None Specific Proced. D/C Criteria Distal Pulses Present (Cardiac: Yes Groin site assessed-Card Cath: Yes Voided Prior To Discharge: Yes Discharged Patients Adult Escort/Transportation: Yes
--- NOTE | 2017-02-01 11:18 | CARDIAC CATH REPORT ---
PROCEDURE: 1. Left heart catheterization. 2. Coronary angiography. 3. Left ventriculography. HISTORY OF PRESENT ILLNESS: The patient is a 57-year-old female who presented with chest pain. She had an abnormal or equivocal exercise stress echocardiogram. PROCEDURE SUMMARY: After informed consent was obtained, the patient was taken to the cardiac catheterization lab, prepped and draped in the usual manner for a right transfemoral approach. Preformed 5-Mongolian diagnostic catheters were utilized for the coronary angiograms. A 5-Mongolian pigtail catheter was utilized for the left ventriculogram. Following the procedure, the arterial site was closed with a Mynx device. The patient then was returned her room in stable condition. CORONARY ANGIOGRAPHY: Selective injections of the left coronary artery revealed the left main trunk to be long and widely patent within normal limits. Left circumflex artery consists principally of a large lateral marginal branch. The left circumflex artery is smooth in appearance, widely patent, and within normal limits. The LAD extends all the way to the apex of the heart. The LAD, especially distally, is small in caliber, but there is no evidence of coronary artery disease. The LAD system is smooth in appearance, widely patent, and within normal limits. Selective injections of the right coronary artery reveal it to be dominant. The right coronary artery is smooth in appearance, widely patent, and within normal limits. LEFT VENTRICULOGRAM: The left ventricle is of normal size and systolic function. The estimated left ventricular ejection fraction is 60%. The LVEDP was 10. SUMMARY: The patient has widely patent and normal coronary arteries. There is normal LV function. RECOMMENDATIONS: The recommendations are for risk factor modification stressing the need to stop smoking.
--- NOTE | 2017-02-01 12:56 | PROGRESS NOTE ---
DATE: 02/01/2017 This is a followup visit. SUBJECTIVE: This morning the patient underwent a cardiac catheterization. I discussed the results of the study with her. She has what appears to be normal coronaries. At least her epicardial arteries are normal. She may still have small vessels disease or coronary spasm from her cigarette smoking. I emphasized the need to stop smoking. I would also consider sending her home with sublingual nitroglycerin to use on a p.r.n. basis. This will work either for small vessels or coronary spasm, and it will also work for esophageal spasm if that is the problem. We will have follow up with her in a few weeks.
[2017-02-01] MEDS ORDERED: NTRSLP4 SL (14:10)
--- NOTE | 2017-02-01 14:20 | Discharge Instructions ---
Discharge Instructions Date of Service Feb 01, 2017. Admission Reason for Admission: Chest Pain Discharge Discharge Diagnosis / Problem: Chest pain Discharge Goals Goal(s): Prevent Disease Progression Activity Recommendations Activity Limitations: resume your previous activity . Instructions / Follow-Up Instructions / Follow-Up Please follow all post-catheterization instructions given. Please take all medications as you were. Nitro tabs to use under the tongue for pain as needed was sent to your preferred pharmacy. Please follow-up with Dr. Miller (Cardiology) as instructed. I strongly recommend you stop smoking completely, as we discussed. Dr. Quevedo can help you with agents to help you quit if the cravings are too much. You have a follow-up appointment with Dr. Quevedo on , 02/08 at 12:40pm. Please bring all paperwork from this hospitalization with you. It was a pleasure taking care of you! Call if you have any questions or problems. You can reach a [facility] hospitalist on duty at [facility] 24 hours a day by calling [phone]. Take care of yourself. Dasia Mahmood DO [facility] Hospitalist Current Hospital Diet Patient's current hospital diet: AHA Diet (Heart Healthy) Discharge Diet Recommended Diet: Regular Diet Pending Studies Studies pending at discharge: no Laboratory Results Lipid Panel Test 01/31/17 06:14 Range/Units Triglycerides Level 66 0-150 mg/dl Cholesterol Level 252 H 0-200 mg/dl HDL Cholesterol 73 mg/dl Cholesterol/HDL Ratio 3.5 LDL Cholesterol, Calculated 166 mg/dl Medical Emergencies . Who to Call and When: Medical Emergencies: If at any time you feel your situation is an emergency, please call 911 immediately. . Non-Emergent Contact Non-Emergency issues call your: Primary Care Provider . . "Provider Documentation" section prepared by Dasia Mahmood. VTE Core Measure Inpt VTE Proph given/why not?: Unfractionated heparin SQ
[2017-02-02] MEDS ORDERED: SODIUM CHLORIDE 0.9% 1000ML 1,000 ML IV SCH
--- NOTE | 2017-02-08 11:33 | Discharge Summary ---
Discharge Summary Date of Service Feb 08, 2017. Discharge Summary Admission Date: Jan 30, 2017 at 14:34 Discharge Date: Feb 01, 2017 Discharge Disposition: Home Principal Diagnosis: Chest pain Smoking Procedures: Cardiac Cath-02/01 Vaccinations: None. Consultations: Cardiology Medication Reconciliation New Medications: Nitroglycerin (Nitrostat) 0.4 Mg/1 Tab Subl 0.4 MG SL UD PRN for Chest Pain for 30 Days, #1 BTL 3 Refills Use every 15 minutes up to 3 doses. If chest pain persists call 911. Continued Medications: Acetaminophen (Tylenol) 500 Mg Tab 1000 MG PO DIRECTED PRN for Pain, TAB Aspirin (Aspirin Ec) 81 Mg Tab 81 MG PO DAILY PRN for Pain Metoclopramide (Reglan) 10 Mg Tab 5 MG PO UD PRN for GI Upset, TAB Sucralfate (Carafate) 1 Gm/10 Ml Susp 1 GM PO DIRECTED PRN for STOMACH ISSUES, ML Admission Information HPI (per Admitting provider): 57 year old female with PMH of paroxysmal atrial tachycardia, esophagitis, Dyslipidemia presents to the Emergency Room with complaints substernal chest pain that started while she was at work. 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 Pain was sharp and radiated through her left shoulder and jaw, grade 10/10 and associated with SOB. she said that the pain improved with the nitro patch. Denies any diaphoresis and dizziness. She said that she had an history of SVT and family hx of cardiac disease. her dad had an heart attack at age 39. Last stress test was wo years ago and was normal. Denies lightheadedness, fevers, cough, leg swelling or pain, vomiting, diarrhea, or other complaints. Physical Exam (per Admitting): General Appearance: WD/WN, no apparent distress Head: normocephalic, atraumatic Eyes: normal inspection, PERRL, EOMI ENT: normal ENT inspection, hearing grossly normal, TMs normal Neck: supple, no JVD Respiratory/Chest: chest non-tender, lungs clear, normal breath sounds, no respiratory distress, no accessory muscle use Cardiovascular: regular rate, rhythm, no edema, no gallop, no JVD, no murmur Abdomen/GI: normal bowel sounds, non tender, soft Back: normal inspection, no CVA tenderness, no muscle spasm Extremities/Musculoskelatal: normal inspection, no calf tenderness 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 Chest pain-ACS ruled out overnight and stress test this morning was abnormal. Symptoms yesterday have resolved with nitro and she is feeling well and has no shortness of breath, palpitations or other symptoms at this time. She is awaiting cath in the morning. Medical management includes ASA as patient has an allergy to statins. Lipid panel is OK.. Encourage smoking cessation. Nitro PRN, NPO p MN 2. h/o SVT-patient knows when she goes into it and can usually break episodes with vagal maneuvers; denies during this admission or yesterday. Continues to be monitored on telemetry. Cardiac catheterization performed on 02/01 revealed normal epicardial arteries. However, as the patient actively smokes, she may have small vessel disease or coronary spasms which may have been a cause of symptoms and the abnormal stress test. She was instructed on the importance of quitting smoking and verbalized understanding with intent to comply. She was given nitro to take home in case of future symptoms with the understanding that she would need to seek medical attention if her pain was severe or unimproved with the nitro. Shortly after the cath she was allowed to ambulate and her femoral site appeared clean dry and intact, still covered with gauze and Tegederm. Physical exam was otherwise unremarkable. She was hemodynamically stable and afebrile. She denied any pain and was tolerating PO and ambulating at baseline. She was sent home in stable condition with close followup with PCP within one week. Total time spent on discharge = 60 minutes This includes examination of the patient, discharge planning, medication reconciliation, and communication with other providers. Discharge Instructions Discharge Instructions Date of Service Feb 01, 2017. Admission Reason for Admission: Chest Pain Discharge Discharge Diagnosis / Problem: Chest pain Discharge Goals Goal(s): Prevent Disease Progression Activity Recommendations Activity Limitations: resume your previous activity . Instructions / Follow-Up Instructions / Follow-Up Please follow all post-catheterization instructions given. Please take all medications as you were. Nitro tabs to use under the tongue for pain as needed was sent to your preferred pharmacy. Please follow-up with Dr. Miller (Cardiology) as instructed. I strongly recommend you stop smoking completely, as we discussed. Dr. Quevedo can help you with agents to help you quit if the cravings are too much. You have a follow-up appointment with Dr. Quevedo on , 02/08 at 12:40pm. Please bring all paperwork from this hospitalization with you. It was a pleasure taking care of you! Call if you have any questions or problems. You can reach a [facility] hospitalist on duty at [facility] 24 hours a day by calling [phone]. Take care of yourself. Dasia Mahmood, [facility] Hospitalist Current Hospital Diet Patient's current hospital diet: AHA Diet (Heart Healthy) Discharge Diet Recommended Diet: Regular Diet Pending Studies Additional Copies To Kem Rodriguez M.D.
== END 2017-02-01 14:52 | disposition home or self-care (01) ==
LOC: ENRESERVTM → ENRESERVDT → C.EDC 12:05 → C.2E 14:34
PROVIDERS: ADMIT Internal Medicine; ATTEND Hospitalist
DX: R07.9 Chest pain, unspecified (principal); E78.5 Hyperlipidemia, unspecified; Z82.49 Family history of ischemic heart disease and other diseases of the circulatory system; Z82.5 Family history of asthma and other chronic lower respiratory diseases; F17.210 Nicotine dependence, cigarettes, uncomplicated

== ENCOUNTER → 2017-10-24 | Outpatient (CLI) | payer OTHER ==
[~2017-10-24] MED LIST changes: -HYDR-5688 PO; +NTRSLP4 SL
--- NOTE | 2017-10-24 16:01 | MAMMOGRAPHY REPORT ---
BILATERAL DIGITAL SCREENING MAMMOGRAM TOMOSYNTHESIS WITH CAD: 10/24/2017 CLINICAL HISTORY: Asymptomatic. Personal history of breast cancer. TECHNIQUE: Breast tomosynthesis in addition to standard 2D mammography was performed. Current study was also evaluated with a Computer Aided Detection (CAD) system. Tomosynthesis images were obtained of the implant displaced views only. COMPARISON: Comparison is made to exams dated: 09/21/2016 mammogram, 04/04/2016 breast MRI, 5 mammogram, 09/21/2015 mammogram, 09/21/2014 mammogram, and 09/15/2011 mammogram - [facility]. BREAST COMPOSITION: There are scattered areas of fibroglandular density in both breasts. FINDINGS: No suspicious masses, calcifications, or areas of architectural distortion are noted in ei ther breast. There has been no significant interval change compared to prior exams. Bilateral subpec paola saline implants are intact. A linear scar marker denotes a scar on the left upper outer breast . Scattered bilateral benign-appearing calcifications are again noted. IMPRESSION: ACR BI-RADS CATEGORY 2: BENIGN There is no mammographic evidence of malignancy. A 1 year screening mammogram is recommended. The pa tient will receive written notification of the results. Approximately 10% of breast cancers are not detected with mammography. A negative mammographic report should not delay biopsy if a clinically suggestive mass is present. Madison Coe M.D. /:10/24/2017 11:09:08 It Operations Analyst: Chantelle Nam, [facility] letter sent: Normal 1/2 BI-RADS Code: ACR BI-RADS Category 2: Benign
== END | disposition home or self-care (01) ==
LOC: C.MAMM 08:53
PROVIDERS: ATTEND Surgery
DX: Z12.31 Encounter for screening mammogram for malignant neoplasm of breast (principal)

== ENCOUNTER → 2018-03-15 | Outpatient (CLI) | payer OTHER ==
[2018-03-15 10:22] LABS: BASO % 0.7 %; BASO ABS # 0.06 K/uL (0-0.2); EOS % 1.7 %; EOS ABS # 0.14 K/uL (0-0.5); HEMATOCRIT 42.3 % (37-47); IG# 0.01 K/uL (0.00-0.02); LYMPH % 35.9 %; LYMPH ABS # 2.91 K/uL (1.2-3.4); MEAN CELL VOLUME 92.8 fL (80-100); MEAN CORPUSCULAR HEMOGLOBIN 30.7 pg (25-34); MEAN CORPUSCULAR HGB CONC 33.1 g/dl (32-36); MEAN PLATELET VOLUME 9.8 fL (7.4-10.4); MONO % 6.9 %; MONO ABS # 0.56 K/uL (0.11-0.59); NEUT % 54.7 %; NEUT ABS # 4.43 K/uL (1.4-6.5); PLATELET COUNT 282 K/uL (130-400); RED CELL DISTRIBUTION WIDTH CV 13.9 % (11.5-14.5); RED CELL DISTRIBUTION WIDTH SD 47.1 fL (36.4-46.3); WHITE BLOOD COUNT 8.11 K/uL (4.8-10.8)
[2018-03-15 10:34] LABS: ALBUMIN 3.8 gm/dl (3.4-5.0); ALT/SGPT 22 U/L (12-78); AST/SGOT 20 U/L (15-37); BLOOD UREA NITROGEN 11 mg/dl (7-18); CALCIUM 8.6 mg/dl (8.5-10.1); CARBON DIOXIDE 27 mmol/L (21-32); CREATININE 0.75 mg/dl (0.60-1.20); GLUCOSE 79 mg/dl (70-99); LIPASE 203 U/L (73-393); SODIUM 135 mmol/L (136-145)
[2018-03-15 10:39] LABS: ALKALINE PHOSPHATASE 71 U/L (45-117); TOTAL PROTEIN 6.9 gm/dl (6.4-8.2)
== END | disposition home or self-care (01) ==
LOC: C.LAB 09:11
PROVIDERS: ATTEND Nurse Practitioner Family
DX: K21.9 Gastro-esophageal reflux disease without esophagitis (principal); K31.84 Gastroparesis; R63.4 Abnormal weight loss; R10.10 Upper abdominal pain, unspecified

== ENCOUNTER → 2018-06-05 | Outpatient (CLI) | payer OTHER ==
--- NOTE | 2018-06-05 10:04 | DIAGNOSTIC IMAGING REPORT ---
UPPER GI SERIES AND SMALL BOWEL FOLLOW-THROUGH CLINICAL HISTORY: EPIGASTRIC PAIN,GASTROPARESIS.Previous bowel surgery. COMPARISON STUDY: CT of the chest, abdomen and pelvis January 22, 2016. FLUOROSCOPY TIME: 2.9 minutes. 30 fluoroscopic images were obtained. FINDINGS: Injection Molding Supervisor KUB demonstrates cholecystectomy clips, dextroscoliosis of the thoracolumbar junction and a normal bowel gas pattern. Esophageal motility is normal. No esophageal mass or stricture is identified. No reflux was elicited. Gastric for pattern is normal. No hiatal hernia is identified. Duodenum is unremarkable. Transit time to the cecum was rapid at 20 minutes. Caliber of the jejunum and ileum are normal. There is no evidence for a small bowel obstruction. Terminal ileum is within normal limits. No small bowel mucosal abnormalities are identified. IMPRESSION: 1. No evidence for small bowel obstruction. No significant abnormality by fluoroscopy. 2. Unremarkable upper GI series. Electronically signed by: Catrachito Suresh M.D. 06/05/2018 10:03 AM Dictated Date/Time: 06/05/2018 10:00 AM
== END | disposition home or self-care (01) ==
LOC: C.RAD 08:59
PROVIDERS: ATTEND Nurse Practitioner Family
DX: R10.13 Epigastric pain (principal)

== ENCOUNTER → 2018-06-12 | Outpatient (CLI) | payer OTHER ==
[~2018-06-12] MED LIST changes: +MIRT15TA2 PO; +ONDA4TAB46 PO
--- NOTE | 2018-06-12 12:29 | DIAGNOSTIC IMAGING REPORT ---
NUCLEAR GASTRIC EMPTYING STUDY HISTORY: Gastroparesis. Epigastric pain. COMPARISON: Upper GI series 06/05/2018. TECHNIQUE: Following the oral administration of 1.3 mCi of technetium 99m sulfur colloid in egg sandwich and 8 ounces of water, static abdominal images are obtained anteriorly and posteriorly at 0 minutes, 1 hour, 2 hour, and 4 hour time intervals. Gastric emptying was calculated utilizing the geometric mean method. FINDINGS: There is approximately 79% activity remaining at the 1 hour time interval (normal is less than 90%), 57% remaining at the 2 hour time interval (normal is less than 60%), and 20% activity remaining at the 4 hour time interval (normal is less than 10%). IMPRESSION: Delayed gastric emptying at the 4 hour time interval as described above. Electronically signed by: Nathaniel Russell M.D. 06/12/2018 12:28 PM Dictated Date/Time: 06/12/2018 12:27 PM
== END | disposition home or self-care (01) ==
LOC: C.NUCL 07:09
PROVIDERS: ATTEND Nurse Practitioner Family
DX: R10.13 Epigastric pain (principal); K31.84 Gastroparesis

== ENCOUNTER → 2018-06-25 | Day surgery (SDC) | payer OTHER ==
[2018-06-18 08:48] VITALS: Ht 172.7 cm; Wt 55.5 kg
[~2018-06-25] VITALS: Ht 172.7 cm; Wt 55.5 kg
[~2018-06-25] MED LIST changes: +ATROPINE SULFATE 0.1 MG/ML 5ML SYR IV PRN; +EpHEDrine SULFATE INJ 50 MG/ML AMP IV PRN; +LIDOCAINE HCL 2% 2 ML VIAL (20MG/ML) ONE; +MIDAZOLAM HCL 1 MG/ML 2ML VIAL ONE; +ONDANSETRON INJ 2 MG/ML 2 ML VIAL ONE; +PROPOFOL IV EMULSION 10 MG/ML 20 ML VIAL ONE; +SODIUM CHLORIDE 0.9% 500ML 500 ML IV ONE
--- NOTE | 2018-06-25 08:01 | Endo History and Physical ---
History & Physical Date of Service: Jun 25, 2018. Chief Complaint: Referring Physician: History of Present Illness Gastroparesis follow up Past Medical History High Cholesterol, Thrombophlebitis Past Surgical History Hx Cardiac Surgery: No Hx Internal Defibrillator: No Hx Pacemaker: No Hx Abdominal Surgery: Yes (BOWEL RESECTION ( PERFORATION & INTERNAL HERNIA) AIXA BSO, APPY, LAP ALTHEA) Hx of Implantable Prosthesis: No Hx Post-Op Nausea and Vomiting: No Hx Cancer Surgery: No Hx Thoracic Surgery: No Hx Orthopedic: Yes (RIGHT SHOULDER ARTHROSCOPY X2) Hx Urinary Tract Surgery: No Family History None Social History Smoking Status: Current Every Day Smoker Hx Substance Use: No Hx Alcohol Use: No Allergies Coded Allergies: Fentanyl (Verified Allergy, Severe, RESP. DISTRESS, 06/25/18) Ibuprofen (Verified Allergy, Severe, ESOPHOGEAL SPASMS, 06/18/18) Penicillins (Verified Allergy, Severe, SOB, HIVES, ANAPHYLAXIS-CAN TAKE CEPHALOSPORINS [place], 06/25/18) Pseudoephedrine (Verified Allergy, Severe, SVT, 06/25/18) Latex1 -Allergic Contact Dermititis (Verified Allergy, Mild, MILD RASH, ) Ezetimibe (Verified Allergy, Unknown, muscle pain, 06/25/18) Simvastatin (Verified Adverse Reaction, Intermediate, MUSCLE SPASMS,CRAMPS , 06/25/18) Statins (Verified Adverse Reaction, Intermediate, muscle cramps and spasms , 06/25/18) Prochlorperazine (Verified Adverse Reaction, Unknown, PSYCHOTIC RXN, ) Current Medications Reported Home Medications Medications Dose Route/Sig Max Daily Dose Days Date Category Dose Instructions Remeron Soltab (Mirtazapine) 15 Mg Soltab 15 Mg PO HS 06/18/18 Reported Zofran (Ondansetron HCl) 4 Mg Tab 4 Mg PO Q6H PRN 06/18/18 Reported Nitrostat (Nitroglycerin) 0.4 Mg/1 Tab Subl 0.4 Mg SL UD PRN 30 02/01/17 Rx Use every 15 minutes up to 3 doses. If chest pain persists call 911. Aspirin Ec (Aspirin) 81 Mg Tab 81 Mg PO DAILY PRN 09/17/16 Reported Tylenol (Acetaminophen) 500 Mg Tab 1,000 Mg PO DIRECTED PRN 09/17/16 Reported Carafate (Sucralfate) 1 Gm/10 Ml Susp 1 Gm PO DIRECTED PRN 09/17/16 Reported Reglan (Metoclopramide HCl) 10 Mg Tab 5 Mg PO UD PRN 09/17/16 Reported Vital Signs Weight (Kilograms): 55.45 Height (Feet): 5 Height (Inches): 8 Physical Exam General Appearance: no apparent distress Respiratory/Chest: Auscultation: breath sounds normal Cardiovascular: Heart Auscultation: RRR Abdomen: Inspection & Palpation: soft, non-distended Assessment and Plan Stable for EGD
[2018-06-25 08:07] VITALS: TEMP 36.7
--- NOTE | 2018-06-25 08:52 | Discharge Instructions ---
Endoscopy Patient Instructions Date / Procedure(s) Performed Jun 25, 2018. EGD Allergy Information Coded Allergies: Fentanyl (Verified Allergy, Severe, RESP. DISTRESS, 06/25/18) Ibuprofen (Verified Allergy, Severe, ESOPHOGEAL SPASMS, 06/18/18) Penicillins (Verified Allergy, Severe, SOB, HIVES, ANAPHYLAXIS-CAN TAKE CEPHALOSPORINS [place], 06/25/18) Pseudoephedrine (Verified Allergy, Severe, SVT, 06/25/18) Latex1 -Allergic Contact Dermititis (Verified Allergy, Mild, MILD RASH, ) Ezetimibe (Verified Allergy, Unknown, muscle pain, 06/25/18) Simvastatin (Verified Adverse Reaction, Intermediate, MUSCLE SPASMS,CRAMPS , 06/25/18) Statins (Verified Adverse Reaction, Intermediate, muscle cramps and spasms , 06/25/18) Prochlorperazine (Verified Adverse Reaction, Unknown, PSYCHOTIC RXN, ) Discharge Date / Findings Jun 25, 2018. Normal EGD. Incidental nodules seen on Vocal cords Medication Instructions Stopped Medication(s): Aspirin last taken on 06/19/18 Reglan last taken on 06/21/18 Remeron last taken on 06/21/18 Provider Instructions Activity Restrictions - No exercising or heavy lifting for 24 hours. - Do not drink alcohol the day of the procedure. - Do not drive a car or operate machinery until the day after the procedure. - Do not make any important decisions or sign important papers in 24 hours after the procedure. Following Day: - Return to full activity which may include returning to work/school. Diet Start your diet with liquids and light foods (jello, soup, juice, toast). Then eat your usual diet if not nauseated. Treatment For Common After Affects For mild abdominal pain, bloating, or excessive gas: - Rest - Eat lightly - Lie on right side Follow-Up Information Follow-up with Rochelle Melendrez as scheduled Anesthesia Information What You Should Know You have had a procedure that required some medicine to reduce anxiety and discomfort. This treatment is called moderate sedation. After receiving the treatment, you may be sleepy, but you will be able to breathe on your own. The effects of the treatment may last for several hours. Follow these instructions along with Activity/Diet recommendations noted above: * Do NOT do anything where dizziness or clumsiness would be dangerous. * Rest quietly at home today, then you can be up and about tomorrow. * Have a responsible person stay with you the rest of today. * You may have had an I.V. today. If so, you may take the dressing off later today. Recommendations Call your doctor if: * Trouble breathing * Continuous vomiting for more than 24 hours * Temperature above 101 degrees * Severe abdominal pain or bloating * Pain not relieved by pain medicine ordered * There is increased drainage or redness from any incision * A large amount of rectal bleeding greater than 2-3 tablespoons. (If you had a polyp/s removed or have hemorrhoids, a small amount of blood - from the rectum is to be expected.) * You have any unanswered questions or concerns. IN THE EVENT OF A SERIOUS EMERGENCY, GO TO THE NEAREST EMERGENCY ROOM Your discharge instructions were prepared by provider Sushil Chowdhury. Patient Instructions Signature Page Micheline Thompson Patient (or Guardian) Signature/Date: I have read and understand the instructions given to me by my caregivers. Caregiver/RN/Doctor Signature/Date: The above-named patient and/or guardian has received patient instructions on this date. + Original Patient Signature Page (only) stays with chart. Please make copy for patient.
--- NOTE | 2018-06-25 09:02 | GI REPORT ---
Patient Name: Micheline Thompson Procedure Date: 06/25/2018 8:20 AM Date of : 1960 Admit Type: Outpatient Age: 58 Gender: Female Attending MD: Sushil Chowdhury MD Procedure: Upper GI endoscopy Providers: Sushil Chowdhury MD Referring MD: Kem Ortez Lorella Thomas Indications: Nausea with vomiting, Weight loss Medicines: Monitored Anesthesia Care Complications: No immediate complications. Estimated Blood Loss: Estimated blood loss: none. Procedure: Pre-Anesthesia Assessment: - Prior to the procedure, a History and Physical was performed, and patient medications and allergies were reviewed. The patient is competent. The risks and benefits of the procedure and the sedation options and risks were discussed with the patient. All questions were answered and informed consent was obtained. Patient identification and proposed procedure were verified by the physician and the nurse in the procedure room. Mental Status Examination: alert and oriented. Airway Examination: normal oropharyngeal airway and neck mobility. Respiratory Examination: clear to auscultation. CV Examination: normal. ASA Grade Assessment: II - A patient with mild systemic disease. After reviewing the risks and benefits, the patient was deemed in satisfactory condition to undergo the procedure. The anesthesia plan was to use monitored anesthesia care (MAC). Immediately prior to administration of medications, the patient was re-assessed for adequacy to receive sedatives. The heart rate, respiratory rate, oxygen saturations, blood pressure, adequacy of pulmonary ventilation, and response to care were monitored throughout the procedure. The physical status of the patient was re-assessed after the procedure. After obtaining informed consent, the endoscope was passed under direct vision. Throughout the procedure, the patient's blood pressure, pulse, and oxygen saturations were monitored continuously. The scope was introduced through the mouth, and advanced to the second part of duodenum. The upper GI endoscopy was accomplished without difficulty. The patient tolerated the procedure well. Findings: Two small non-obstructing nodules were found at both vocal cords. The examined esophagus was normal. The Z-line was regular and was found 43 cm from the incisors. The entire examined stomach was normal. The duodenal bulb and second portion of the duodenum were normal. Impression: - Two nodules were found at the vocal cords. - Normal esophagus. - Z-line regular, 43 cm from the incisors. - Normal stomach. - Normal duodenal bulb and second portion of the duodenum. - No specimens collected. Recommendation: - Discharge patient to home. - Refer to an ENT specialist. - Return to referring physician. Sushil Chowdhury MD 06/25/2018 9:02:03 AM This report has been signed electronically. Note Initiated On: 06/25/2018 8:20 AM Number of Addenda: 0 I attest to the content of the Intraoperative Record and orders documented therein, exceptions below {[id number]}
[2018-06-25 09:24] VITALS: BP 117/70; PULSE 58; O2SAT 99
--- NOTE | 2018-06-25 09:32 | Anesthesiology Progress Note ---
Anesthesia Post Op Note Date & Time Jun 25, 2018 at 09:32 Vital Signs Pain Intensity: 0 Vital Signs Past 12 Hours Date Time Temp Pulse Resp B/P (MAP) Pulse Ox O2 Delivery O2 Flow Rate FiO2 06/25/18 09:24 58 18 117/70 (86) 99 Room Air 06/25/18 09:09 57 18 98/68 (78) 99 Room Air 06/25/18 08:54 66 16 93/48 (63) 98 Room Air 06/25/18 08:07 36.7 59 18 106/64 (78) 100 Room Air Notes Mental Status: alert / awake / arousable, participated in evaluation Pt Amnestic to Procedure: Yes Nausea / Vomiting: adequately controlled Pain: adequately controlled Airway Patency, RR, SpO2: stable & adequate BP & HR: stable & adequate Hydration State: stable & adequate Anesthetic Complications: no major complications apparent
== END | disposition home or self-care (01) ==
LOC: C.GI 07:12
PROVIDERS: ATTEND Student in an Organized Health Care Education/Training Program
DX: R11.2 Nausea with vomiting, unspecified (principal); J38.2 Nodules of vocal cords; F17.200 Nicotine dependence, unspecified, uncomplicated; Z86.711 Personal history of pulmonary embolism; Z88.0 Allergy status to penicillin; Z91.040 Latex allergy status; Z88.8 Allergy status to other drugs, medicaments and biological substances; Z79.82 Long term (current) use of aspirin